=== PATIENT | male | born 1950 | race Caucasian/White ===

== ENCOUNTER 2017-09-16 15:45 | Emergency (ER) | payer SELFPAY ==
[~2017-09-16] VITALS: Ht 167.6 cm; Wt 52.0 kg
[2017-09-16] MEDS ORDERED: SODIUM CHLORIDE FLUSH 10ML SYR IVF ONE (16:00)
[2017-09-16] MEDS ORDERED: MORPHINE SULFATE 4 MG/ML, 1ML ONE ×2 (16:11→16:58)
[2017-09-16 16:21] LABS: BASOPHILS # (AUTO) 0.05 x10^3/uL (0-0.1); BASOPHILS % (AUTO) 1 % (0-1); EOSINOPHILS # (AUTO) 0.16 x10^3/uL (0-0.4); EOSINOPHILS % (AUTO) 2 % (1-7); LYMPHOCYTES # (AUTO) 1.49 x10^3/uL (1-3.4); LYMPHOCYTES % (AUTO) 18 % (22-44); MD NO; MEAN CORPUSCULAR HEMOGLOBIN 31.4 pg (27.5-34.5); MEAN CORPUSCULAR HGB CONC 33.5 g/dL (33.2-36.2); MEAN CORPUSCULAR VOLUME 93.9 fL (81-97); MEAN PLATELET VOLUME 7.6 fL (7.4-10.4); MONOCYTES % (AUTO) 6 % (2-9); NEUTROPHILS # (AUTO) 5.96 x10^3/uL (1.8-6.8); NEUTROPHILS % (AUTO) 73 % (42-75); PLATELET COUNT 271 x10^3/uL (130-400); RED BLOOD COUNT 3.58 x10^6/uL (4.38-5.82); RED CELL DISTRIBUTION WIDTH 13.8 % (9.4-14.8)
[2017-09-16 16:31] LABS: ALANINE AMINOTRANSFERASE 17 U/L (12-78); ALBUMIN 2.7 g/dL (3.4-5.0); ANION GAP 9 mmol/L (5-15); CALCIUM 8.4 mg/dL (8.5-10.1); CHLORIDE 101 mmol/L (98-107); CREATININE 1.09 mg/dL (0.7-1.3)
[2017-09-16 16:34] LABS: ALKALINE PHOSPHATASE 86 U/L (45-117); BILIRUBIN,TOTAL 0.2 mg/dL (0.2-1.0); TOTAL PROTEIN 7.7 g/dL (6.4-8.2)
[2017-09-16] MEDS: MORPHINE SULFATE 4 MG/ML, 1ML IVPush PRN ×2 (16:50→16:59)
[2017-09-16] MEDS ORDERED: DIPHENHYDRAMINE 50 MG/ML, 1ML ONE (16:57)
[2017-09-16] MEDS ORDERED: DIPHENHYDRAMINE 50 MG/ML, 1ML IVPush ONE (17:00)
[2017-09-16 17:01] VITALS: BP 136/66
[2017-09-16] MEDS ORDERED: BACITRACIN ZINC OINT 500U/GM, 0.9 GM ONE (18:53)
== END 2017-09-16 19:10 | disposition home or self-care (01) ==
LOC: ED 18:14
DX: S12.501A Unspecified nondisplaced fracture of sixth cervical vertebra, initial encounter for closed fracture (principal); S40.012A Contusion of left shoulder, initial encounter; S40.022A Contusion of left upper arm, initial encounter; S60.222A Contusion of left hand, initial encounter; V59.9XXA Occupant (driver) (passenger) of pick-up truck or van injured in unspecified traffic accident, initial encounter; Y93.89 Activity, other specified; Y92.488 Other paved roadways as the place of occurrence of the external cause; Y99.8 Other external cause status
CPT/HCPCS: 36415; 70450; 71250; 72125; 73030; 73060; 73130; 80053; 83880; 85025; 93005; 96374; 96375; 99285; J1200

== ENCOUNTER 2017-09-28 14:19 | Emergency (ER) | payer MEDICARE, MEDICAID ==
[~2017-09-28] VITALS: Ht 170.2 cm; Wt 47.0 kg
[2017-09-28 14:30] VITALS: BP 131/82
== END 2017-09-28 15:53 | disposition home or self-care (01) ==
LOC: ED 15:47
DX: S12.501D Unspecified nondisplaced fracture of sixth cervical vertebra, subsequent encounter for fracture with routine healing (principal); S60.511D Abrasion of right hand, subsequent encounter; S40.812D Abrasion of left upper arm, subsequent encounter; S60.512D Abrasion of left hand, subsequent encounter; J44.9 Chronic obstructive pulmonary disease, unspecified; I25.2 Old myocardial infarction; V89.2XXD Person injured in unspecified motor-vehicle accident, traffic, subsequent encounter
CPT/HCPCS: 99281

== ENCOUNTER 2018-07-08 09:47 | Emergency (ER) | payer MEDICARE ==
[~2018-07-08] VITALS: Ht 167.6 cm; Wt 53.8 kg
--- NOTE | 2018-07-08 10:20 | NUR ---
First contact with pt. Pt c/o chest pain since 6 am this morning. 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 NADN. [facility] at [facility]. All safety measures in place. Pt connected to all monitors. Call light within reach.
[2018-07-08 10:43] LABS: BASOPHILS # (AUTO) 0.05 x10^3/uL (0-0.1); BASOPHILS % (AUTO) 1 % (0-1); EOSINOPHILS # (AUTO) 0.05 x10^3/uL (0-0.4); EOSINOPHILS % (AUTO) 1 % (1-7); LYMPHOCYTES # (AUTO) 1.39 x10^3/uL (1-3.4); LYMPHOCYTES % (AUTO) 19 % (22-44); MD NO; MEAN CORPUSCULAR HEMOGLOBIN 32.8 pg (27.5-34.5); MEAN CORPUSCULAR HGB CONC 33.8 g/dL (33.2-36.2); MEAN PLATELET VOLUME 6.7 fL (7.4-10.4); MONOCYTES % (AUTO) 7 % (2-9); NEUTROPHILS # (AUTO) 5.38 x10^3/uL (1.8-6.8); NEUTROPHILS % (AUTO) 73 % (42-75); PLATELET COUNT 323 x10^3/uL (130-400); RED BLOOD COUNT 3.77 x10^6/uL (4.38-5.82)
[2018-07-08 10:53] LABS: ALBUMIN 3.7 g/dL (3.4-5.0); ANION GAP 6 mmol/L (5-15); CALCIUM 8.7 mg/dL (8.5-10.1); CHLORIDE 104 mmol/L (98-107); CREATININE 1.19 mg/dL (0.7-1.3)
[2018-07-08 10:56] LABS: TROPONIN I < 0.015 ng/mL (0.000-0.045)
[2018-07-08] MEDS ORDERED: ONDANSETRON 2MG/ML, 2ML IVPush ONE (11:30)
[2018-07-08] MEDS ORDERED: MORPHINE SULFATE 4 MG/ML, 1ML IVPush PRN (11:30)
--- NOTE | 2018-07-08 11:39 | NUR ---
need iv for CT
[2018-07-08] MEDS ORDERED: ONDANSETRON 2MG/ML, 2ML ONE (11:42)
[2018-07-08] MEDS ORDERED: MORPHINE SULFATE 4 MG/ML, 1ML ONE (11:42)
--- NOTE | 2018-07-08 12:03 | NUR ---
Pt at imaging at this time and left on [place]
--- NOTE | 2018-07-08 12:15 | NUR ---
PT IN XRAY
--- NOTE | 2018-07-08 12:20 | NUR ---
NO IV YET FOR CT.
[2018-07-08] MEDS ORDERED: ONDANSETRON ODT 4 MG ONE (12:26)
[2018-07-08] MEDS ORDERED: ONDANSETRON ODT 4 MG PO ONE (12:30)
--- NOTE | 2018-07-08 13:24 | NUR ---
LUNCH BREAK NOTE: PT TO CT.
--- NOTE | 2018-07-08 13:40 | NUR ---
PT CAME TO CT WITH IV IN RIGHT AC THAT'S NOT WORKING, PLACE 20G IN LEFT FOREARM FOR CT. SENT PT BACK TO ER WITH IV INTACT.
[2018-07-08] MEDS ORDERED: OMNIPAQUE 350 MG/ML, 100ML BOTTLE ONE (13:42)
[2018-07-08 14:07] VITALS: BP 156/80
--- NOTE | 2018-07-08 15:26 | NUR ---
Patient given discharge instructions and they have confirmed that they understand the instructions. Patient ambulatory with steady gait. Pt left with all personal belongings, discharge paperwork, and prescriptions.
== END 2018-07-08 15:28 | disposition home or self-care (01) ==
LOC: ED 10:47
DX: K22.2 Esophageal obstruction (principal); R13.10 Dysphagia, unspecified; I25.2 Old myocardial infarction; J44.9 Chronic obstructive pulmonary disease, unspecified; F17.200 Nicotine dependence, unspecified, uncomplicated
CPT/HCPCS: 36415; 71045; 71260; 74220; 80048; 82040; 84484; 85025; 93005; 99284; Q9967

== ENCOUNTER 2018-07-10 09:49 | Observation (INO) | payer MEDICARE ==
[~2018-07-10] VITALS: Ht 167.6 cm; Wt 59.1 kg
--- NOTE | 2018-07-10 10:55 | NUR ---
Pt to T-2 from [facility]
[2018-07-10] MEDS ORDERED: TYLENOL #4 PO (11:22)
--- NOTE | 2018-07-10 11:25 | NUR ---
DR RODRÍGUEZ AT BEDSIDE. PT WITH C/O DIFFICULTY SWALLOWING AND VERBALIZES THAT HE NEEDS TO HAVE HIS ESOPHGEAL STRICTURE DIALATED. STATES HE HAS HAD MULTIPLE DIALATIONS. PT ABLE TO TOLLERATE SMALL SIPS OF WATER BUT STATES "IT REALLY HURTS". POC DISCUSSED AND QUESTIONS ANSWERED. ALL MONITORS IN PLACE AND CALL LIGHT W/I REACH.
[2018-07-10 11:57] LABS: BASOPHILS # (AUTO) 0.09 x10^3/uL (0-0.1); BASOPHILS % (AUTO) 1 % (0-1); EOSINOPHILS # (AUTO) 0.09 x10^3/uL (0-0.4); EOSINOPHILS % (AUTO) 1 % (1-7); LYMPHOCYTES # (AUTO) 1.31 x10^3/uL (1-3.4); LYMPHOCYTES % (AUTO) 18 % (22-44); MD NO; MEAN CORPUSCULAR HEMOGLOBIN 33.6 pg (27.5-34.5); MEAN CORPUSCULAR HGB CONC 34.1 g/dL (33.2-36.2); MEAN CORPUSCULAR VOLUME 98.7 fL (81-97); MEAN PLATELET VOLUME 6.9 fL (7.4-10.4); MONOCYTES # (AUTO) 0.46 x10^3/uL (0.2-0.8); MONOCYTES % (AUTO) 6 % (2-9); NEUTROPHILS # (AUTO) 5.42 x10^3/uL (1.8-6.8); NEUTROPHILS % (AUTO) 74 % (42-75); PLATELET COUNT 320 x10^3/uL (130-400); RED BLOOD COUNT 3.74 x10^6/uL (4.38-5.82); RED CELL DISTRIBUTION WIDTH 14.1 % (9.4-14.8)
[2018-07-10 12:05] LABS: ALBUMIN 3.8 g/dL (3.4-5.0); ANION GAP 7 mmol/L (5-15); CALCIUM 8.8 mg/dL (8.5-10.1); CHLORIDE 104 mmol/L (98-107); CREATININE 1.09 mg/dL (0.7-1.3)
--- NOTE | 2018-07-10 12:45 | NUR ---
PT TOOK OWN TYLENOL 4 (2 TABS), OK PER DR. RODRÍGUEZ
[2018-07-10] MEDS ORDERED: LIDOCAINE 2%,20 ML JEL.PF.APP MM ONE ×2 (12:51→13:30)
--- NOTE | 2018-07-10 13:02 | NUR ---
DR MONTIEL AT BEDSIDE.
[2018-07-10] MEDS ORDERED: SODIUM CHLORIDE 0.9% 1,000 ML IV ONE (13:12)
[2018-07-10] MEDS ORDERED: SODIUM CHLORIDE FLUSH 10ML SYR IVF ONE (13:30)
[2018-07-10] MEDS ORDERED: MORPHINE SULFATE 4 MG/ML, 1ML IVPush PRN (13:30)
--- NOTE | 2018-07-10 13:46 | NUR ---
PT AWARE OF ADMIT AND PLAN FOR SURGERY TODAY AT 1800. CONSENT COMPLETED AND SIGNED BY PT.
[2018-07-10] MEDS ORDERED: SODIUM CHLORIDE 0.9% 1,000 ML IV SCH (14:08)
[2018-07-10] MEDS ORDERED: LABETALOL 5MG/ML, 20ML IVPush PRN (14:30)
[2018-07-10] MEDS ORDERED: LIDODERM 5% PATCH TD PRN (14:30)
[2018-07-10] MEDS ORDERED: ACETAMINOPHEN 325 MG TABLET PO PRN ×2 (14:30→18:30)
[2018-07-10] MEDS ORDERED: ONDANSETRON 2MG/ML, 2ML IVPush PRN (14:30)
[2018-07-10] MEDS ORDERED: ONDANSETRON ODT 4 MG PO PRN (14:30)
[2018-07-10] MEDS ORDERED: BISACODYL 10 MG SUPP PR PRN (14:30)
[2018-07-10] MEDS ORDERED: DOCUSATE 100 MG CAPSULE PO PRN (14:30)
[2018-07-10] MEDS ORDERED: POLYETHYLENE GLYCOL 17 GM PACKET PO PRN (14:30)
[2018-07-10] MEDS ORDERED: KETOROLAC 30 MG/1 ML IV PRN (14:30)
[2018-07-10] MEDS ORDERED: APAP/CODEINE 300/60MG TABLET PO PRN (14:30)
[2018-07-10] MEDS ORDERED: ENALAPRILAT 1.25 MG/ML, 2ML IVPush PRN (14:30)
[2018-07-10] MEDS ORDERED: MIDAZOLAM 1 MG/ML, 2ML ONE (17:04)
[2018-07-10] MEDS ORDERED: FENTANYL PF 250 MCG/5ML ONE (17:05)
[2018-07-10] MEDS ORDERED: LIDOCAINE-MPF 2% ,5ML ONE (17:05)
[2018-07-10] MEDS ORDERED: PROPOFOL 10 MG/ML, 20ML ONE (17:05)
[2018-07-10] MEDS ORDERED: SUCCINYLCHOLINE 20 MG/ML, 10ML ONE (17:07)
[2018-07-10] MEDS ORDERED: EPHEDRINE 50 MG/ML, 1ML ONE (17:07)
[2018-07-10] MEDS ORDERED: SODIUM CHLORIDE 0.9% PF 10ML ONE (17:07)
[2018-07-10] MEDS ORDERED: ONDANSETRON 2MG/ML, 2ML ONE ×2 (18:05)
[2018-07-10] MEDS ORDERED: DEXAMETHASONE 4 MG/ML, 1ML ONE (18:06)
[2018-07-10] MEDS ORDERED: HALOPERIDOL 5 MG/ML IV PRN (18:30)
[2018-07-10] MEDS ORDERED: hydrALAzine 20 MG/ML, 1ML IV PRN (18:30)
[2018-07-10] MEDS ORDERED: MEPERIDINE/PF 25MG/0.5ML IVPush PRN (18:30)
[2018-07-10] MEDS ORDERED: HYDROmorphone 1 MG/ML, 1ML IVPush PRN (18:30)
[2018-07-10] MEDS ORDERED: PROMETHAZINE 25 MG/ML, 1ML IV PRN (18:30)
[2018-07-10] MEDS ORDERED: OXYcodone 5 MG/5 ML ORAL.SOL UDC PO PRN (18:30)
[2018-07-10] MEDS ORDERED: FENTANYL PF 100 MCG/2ML IV PRN (18:30)
[2018-07-10 19:31] VITALS: BP 163/63
[2018-07-10] MEDS ORDERED: HYDROcodone/APAP 7.5-325MG/15ML UDC PO PRN (20:00)
[2018-07-10] MEDS ORDERED: D5%-LACTATED RINGERS 1,000 ML IV SCH (20:00)
[2018-07-10 20:07] VITALS: BP 152/70
[2018-07-11 01:30] VITALS: BP 137/71
[2018-07-11 05:48] LABS: BASOPHILS # (AUTO) 0.02 x10^3/uL (0-0.1); BASOPHILS % (AUTO) 0 % (0-1); EOSINOPHILS # (AUTO) 0.13 x10^3/uL (0-0.4); EOSINOPHILS % (AUTO) 2 % (1-7); LYMPHOCYTES # (AUTO) 0.71 x10^3/uL (1-3.4); LYMPHOCYTES % (AUTO) 12 % (22-44); MD NO; MEAN CORPUSCULAR HEMOGLOBIN 33.6 pg (27.5-34.5); MEAN CORPUSCULAR HGB CONC 34.3 g/dL (33.2-36.2); MEAN CORPUSCULAR VOLUME 97.9 fL (81-97); MEAN PLATELET VOLUME 7.2 fL (7.4-10.4); MONOCYTES # (AUTO) 0.16 x10^3/uL (0.2-0.8); MONOCYTES % (AUTO) 3 % (2-9); NEUTROPHILS # (AUTO) 4.88 x10^3/uL (1.8-6.8); NEUTROPHILS % (AUTO) 83 % (42-75); PLATELET COUNT 286 x10^3/uL (130-400); RED BLOOD COUNT 3.72 x10^6/uL (4.38-5.82); RED CELL DISTRIBUTION WIDTH 13.9 % (9.4-14.8)
[2018-07-11 05:53] LABS: ANION GAP 8 mmol/L (5-15); CALCIUM 8.2 mg/dL (8.5-10.1); CHLORIDE 104 mmol/L (98-107)
[2018-07-11 05:56] LABS: CREATININE 1.08 mg/dL (0.7-1.3)
[2018-07-11 07:35] VITALS: BP 115/71
== END 2018-07-11 11:06 | disposition home or self-care (01) ==
LOC: ED 11:21 → EDIP 13:20 → 3NW 18:25 → DCLOUNGE 07-11 10:58
PROVIDERS: ADMIT Internal Medicine; ATTEND Internal Medicine
DX: K22.2 Esophageal obstruction (principal); I25.10 Atherosclerotic heart disease of native coronary artery without angina pectoris; I10 Essential (primary) hypertension; F17.210 Nicotine dependence, cigarettes, uncomplicated; I25.2 Old myocardial infarction; J44.9 Chronic obstructive pulmonary disease, unspecified; R13.13 Dysphagia, pharyngeal phase; Z91.19 Patient's noncompliance with other medical treatment and regimen; Z95.5 Presence of coronary angioplasty implant and graft
CPT/HCPCS: 36415; 43235; 80048; 82040; 85025; 99284; G0378; J0330; J1100; J2250; J2405; J2704; J3010; J3490; J7030; J7121